=== PATIENT | male | born 1980 | race Caucasian/White ===

== ENCOUNTER 2024-11-12 11:09 | Outpatient (CLI) | payer BC, SELFPAY ==
[2024-11-12 12:33] LABS: Hemoglobin A1C 6.8 % (4.0-6.0)
== END 2024-11-12 23:59 | disposition home or self-care (01) ==
PROVIDERS: PCP Family Medicine; Visit Provider Family Medicine
DX: E11.9 Type 2 diabetes mellitus without complications (principal)
CPT/HCPCS: 36415; 83036